=== PATIENT | male | born 1940 | race Caucasian/White ===

== ENCOUNTER → 2016-06-20 | Outpatient (CLI) | payer MEDICARE ==
--- NOTE | 2016-06-20 15:36 | XR ---
EXAMINATION TYPE: XR lumbosacral spine min 4V DATE OF EXAM: 06/20/2016 3:24 PM COMPARISON: NONE HISTORY: 75-year-old male right-sided low back pain TECHNIQUE: 5 views FINDINGS: There are 5 lumbar-type vertebral bodies. No pars interarticularis defect identified. Advanced hypertrophic facet arthropathy throughout the lumbar spine especially the mid to lower lumba r spine. There is severe disc/endplate degenerative change at L5-S1 and L4-L5 and more moderate at ad ditional levels of the lumbar spine. Bridging anterior endplate spondylosis at T12-L1. 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 Vertebral body heights are preserved and alignment is maintained. Leftward truncal shift is noted. T here is a smooth calcification in the right mid abdomen measuring 1.6 cm and the second just above me asuring 6 mm. On the left side of the abdomen, there is a calcification measuring 4 mm. IMPRESSION: 1. Severe hypertrophic facet arthropathy within the lumbar spine and additional severe degenerative d isc disease at L4 through S1 levels. No vertebral compression collapse or malalignment. 2. 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 3. Leftward truncal shift could be positional or secondary to muscle spasm. 4. Possible bilateral nephrolithiasis measuring up to 1.6 cm on the right.
== END | disposition home or self-care (01) ==
LOC: RADXRMAIN 15:10
PROVIDERS: ATTEND Internal Medicine
DX: M51.37 Other intervertebral disc degeneration, lumbosacral region (principal); M46.86 Other specified inflammatory spondylopathies, lumbar region
CPT/HCPCS: 72110

== ENCOUNTER → 2016-07-12 | Outpatient (CLI) | payer MEDICARE ==
[2016-07-12 12:05] LABS: CH 30.9; CHCM 33.9; HCT 46.7 % (39.0-53.0); HDW 2.77; HGB 15.6 gm/dL (13.0-17.5); MCH 30.7 pg (25.0-35.0); MCHC 33.5 g/dL (31.0-37.0); MCV 91.7 fL (80.0-100.0); Mean Platelet Volume 7.9; RBC 5.09 m/uL (4.30-5.90); RDW 13.1 % (11.5-15.5); WBC 7.7 k/uL (3.8-10.6)
[2016-07-12 12:24] LABS: ALT 34 U/L (21-72); AST 23 U/L (17-59); Alkaline Phosphatase 85 U/L (38-126); Anion Gap 11 mmol/L; Blood Urea Nitrogen 19 mg/dL (9-20); Calcium 9.7 mg/dL (8.4-10.2); Carbon Dioxide 28 mmol/L (22-30); Chloride 106 mmol/L (98-107); Cholesterol 182 mg/dL (<200); Glucose 172 mg/dL (74-99); HDL Cholesterol 49 mg/dL (40-60); Non-African American GFR(MDRD) >60 (>60 ml/min/1.73 sqM); Potassium 4.6 mmol/L (3.5-5.1); Sodium 145 mmol/L (137-145); Total Bilirubin 1.1 mg/dL (0.2-1.3); Total Protein 7.3 g/dL (6.3-8.2); Triglycerides 97 mg/dL (<150)
[2016-07-12 13:40] LABS: Hemoglobin A1C 5.8 % (4.2-6.1)
== END | disposition home or self-care (01) ==
LOC: LABWHC1 11:37
PROVIDERS: ATTEND Internal Medicine
DX: I11.9 Hypertensive heart disease without heart failure (principal); E11.9 Type 2 diabetes mellitus without complications; E78.2 Mixed hyperlipidemia
CPT/HCPCS: 36415; 80053; 80061; 83036; 85027

== ENCOUNTER → 2016-07-22 | Outpatient (CLI) | payer MEDICARE ==
--- NOTE | 2016-07-22 09:03 | MR ---
EXAMINATION TYPE: MR lumbar spine wo con DATE OF EXAM: 07/22/2016 8:36 AM COMPARISON: Lumbar spine x-ray June 20, 2016. CT abdomen and pelvis October 27, 2012. HISTORY: Low back pain per order. Low back pain causing pain into left buttocks thigh and calf for 2 months per patient. TECHNIQUE: Multiplanar, multisequence imaging of the lumbar spine is performed without IV contrast. FINDINGS: Sagittal images of the lumbar spine show vertebral body heights and alignment to appear sat isfactory. There is multilevel disc desiccation with multilevel disc space narrowing that is fairly m oderate to advanced in mid to lower lumbar levels. Vacuum disc phenomenon is redemonstrated at L4-L5 and L5-S1 levels. No large posterior disc herniations are present on sagittal images. There is mild t o moderate multilevel anterior spurring. The conus medullaris is normal in position and signal ending at inferior L1 level. The bone marrow signal intensity shows some heterogeneous areas of increased T1 and T2 signal consistent with Modic type II degenerative change most pronounced posteriorly L4-L5 disc space level. Axial images show the T12-L1 level to appear within normal limits. Axial images at the L1-L2 level show mild lobulated posterior disc protrusion mildly effacing anterio r thecal sac and mild facet degenerative changes with ligamentum flavum hypertrophy. Bilateral neural foramina are patent. Axial images at L2-L3 level show mild to moderate broad disc bulge mildly effacing anterior thecal sa c and mild facet degenerative changes bilaterally. Bilateral neural foramina remain patent. Axial images at L3-L4 level show mild to moderate facet degenerative changes and ligament flavum hype rtrophy effacing posterior lateral thecal sac. There is mild broad disc bulge seen. There is mild to moderate left and mild right-sided neural foraminal narrowing at this level identified. Axial images at the L4-L5 level show moderate facet degenerative changes bilaterally. There is mild t o moderate broad disc bulge seen. There is moderate bilateral anterior inferior neural foraminal narr owing at this level identified. Axial images at L5-S1 level show moderate facet degenerative changes bilaterally. There is mild to mo derate broad disc bulge seen. There is mild bilateral anterior inferior neural foraminal narrowing no artemio. There is persistent round T2 hypointense 1 cm lesion corresponding to UPJ calculus on axial image 17 on the right. IMPRESSION: Multilevel moderate to advanced degenerative changes most prominent in the mid to lower l umbar spine as detailed above.
== END | disposition home or self-care (01) ==
LOC: RADMRIMAIN 07:43
PROVIDERS: ATTEND Internal Medicine
DX: M47.26 Other spondylosis with radiculopathy, lumbar region (principal); M47.27 Other spondylosis with radiculopathy, lumbosacral region
CPT/HCPCS: 72148

== ENCOUNTER → 2016-11-14 | Outpatient (CLI) | payer MEDICARE ==
[2016-11-14 13:07] LABS: Anion Gap 12 mmol/L; Blood Urea Nitrogen 18 mg/dL (9-20); Calcium 10.1 mg/dL (8.4-10.2); Carbon Dioxide 26 mmol/L (22-30); Chloride 105 mmol/L (98-107); Cholesterol 186 mg/dL (<200); Glucose 124 mg/dL (74-99); HDL Cholesterol 52 mg/dL (40-60); Non-African American GFR(MDRD) >60 (>60 ml/min/1.73 sqM); Potassium 4.5 mmol/L (3.5-5.1); Sodium 143 mmol/L (137-145); Triglycerides 115 mg/dL (<150)
[2016-11-14 14:08] LABS: Hemoglobin A1C 6.1 % (4.2-6.1)
== END | disposition home or self-care (01) ==
LOC: LABWHC1 12:26
PROVIDERS: ATTEND Internal Medicine
DX: Z00.01 Encounter for general adult medical examination with abnormal findings (principal); E11.9 Type 2 diabetes mellitus without complications; E78.2 Mixed hyperlipidemia; I11.9 Hypertensive heart disease without heart failure
CPT/HCPCS: 36415; 80048; 80061; 82043; 83036

== ENCOUNTER 2017-02-21 17:50 | Emergency (ER) | payer MEDICARE ==
[2017-02-21 18:19] VITALS: RESP 18
--- NOTE | 2017-02-21 19:07 | ED ---
Extremity Problem HPI - General Chief complaint: Extremity Problem,Nontraumatic Stated complaint: L leg DVT. Brought from US Time Seen by Provider: 02/21/17 18:03 Source: patient Mode of arrival: ambulatory Limitations: no limitations - History of Present Illness Initial comments: This 76-year-old white male presents with a complaint of some left leg swelling. He states that this is been present for the last 5-6 days. 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 He is not on any blood thinners currently. He states that he had a problem in the past with an elevated INR and was severely ill and needed reversal. He denies any chest pain or shortness of breath. He apparently was following up with his physiatry wrist, Dr. Ellison, today and he sent him for an outpatient lower extremity venous Doppler ultrasound. This came back showing evidence of a DVT and he was sent to the ER from ultrasound. The technical support specialist apparently did contact Dr. Ellison. The patient has no other complaints or modifying factors. - Related Data Home Medications Medication Instructions Recorded Confirmed Aspirin 81 mg PO DAILY 08/01/15 08/09/15 Glimepiride [Glimepiride] 1 tab PO DAILY 08/01/15 08/09/15 Simvastatin [Simvastatin] 1 tab PO DAILY 08/01/15 08/09/15 Tamsulosin [Flomax] 0.4 mg PO DAILY 08/01/15 08/09/15 amLODIPine [Norvasc] 1 tab PO DAILY 08/01/15 08/09/15 metFORMIN HCL [Glucophage Xr] 500 mg PO BID 08/01/15 08/09/15 Allergies Allergy/AdvReac Type Severity Reaction Status Date / Time cephalexin monohydrate AdvReac GI Bleeding Verified 02/21/17 18:42 [From Keflex] sulfamethoxazole AdvReac GI Bleeding Verified 02/21/17 18:42 [From Bactrim] trimethoprim [From Bactrim] AdvReac GI Bleeding Verified 02/21/17 18:42 Review of Systems ROS Statement: Those systems with pertinent positive or pertinent negative responses have been documented in the HPI. ROS Other: All systems not noted in ROS Statement are negative. Past Medical History Past Medical History: Hyperlipidemia, Hypertension, Osteoarthritis (OA) Additional Past Medical History / Comment(s): 5 blood clots in right leg History of Any Multi-Drug Resistant Organisms: None Reported Past Surgical History: Orthopedic Surgery Additional Past Surgical History / Comment(s): carpal tunnel surgery, left shoulder replaced, varicose vein surgeries Past Anesthesia/Blood Transfusion Reactions: No Reported Reaction Past Psychological History: No Psychological Hx Reported Smoking Status: Never smoker Past Alcohol Use History: None Reported Past Drug Use History: None Reported - Past Family History Father Family Medical History: Cancer, Congestive Heart Failure (CHF), Hypertension, Myocardial Infarction ([place]) Mother Family Medical History: Cancer, Hypertension General Exam - General Exam Comments Initial Comments: GENERAL: The patient is well nourished and well hydrated. VITAL SIGNS: Heart rate, blood pressure, respiratory rate reviewed as recorded in nurse's notes. EYES: Pupils are round and reactive. Extraocular movements are intact. No conjunctival / lid redness or swelling. ENT: No external evidence of injury, swelling, or ecchymosis. Airway is patent. Throat is clear. NECK: Nontender. No swelling or evidence of injury. No subcutaneous emphysema. Trachea is midline. No thyroid mass. HEART: Regular rate and rhythm. Good peripheral pulses. LUNGS/CHEST: Breath sounds clear and equal bilaterally. No rales, rhonchi, or wheezes. No ecchymosis, subcutaneous emphysema, or tenderness. ABDOMEN: Abdomen soft without tenderness. No palpable masses or organomegaly. No peritoneal signs. No abdominal wall swelling or ecchymosis. EXTREMITIES: No extremity tenderness. Normal muscle tone and function. No thoracolumbar tenderness. There is some mild swelling present to the left calf region. NEUROLOGIC: Sensation is grossly intact. Cranial nerve exam reveals face is symmetrical, tongue is midline, speech is clear. SKIN: No abrasions or ecchymosis is noted. No induration or masses noted. PSYCHIATRIC: Alert and oriented. Appropriate behavior and judgment. Limitations: no limitations Course Vital Signs 02/21/17 18:04 Temperature 98.3 F Pulse Rate 74 Respiratory 18 Rate Blood Pressure 192/89 O2 Sat by Pulse 97 Oximetry Medical Decision Making - Medical Decision Making The patient was seen and examined. 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 The case was discussed with the [facility] for [facility] who discussed with Dr. Ellison. 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 The patient does not have any signs of pulmonary embolism at this time. It is felt as though he is stable for discharge and was instructed to go directly to the pharmacy to pickle water pump operator the prescription and start taking the Xaralto. The pharmacy retail support specialist apparently did call up to [facility] and they relate that he will be responsible for approximately $300 for the prescription. The patient is unsure if he can afford this. He is offered admission to the hospital instead to receive Lovenox and then be transitioned to Coumadin once again. He states that he cannot stay in the hospital as he has to pickle water pump operator [place] the [place]. A long discussion was held regarding the need for being on a blood thinner and that he can progress into a pulmonary embolism and potentially be fatal. He absolutely refuses admission to the hospital and states that he will go to the pharmacy and talked to the pharmacist to try to arrange something. He is instructed that if he is unable to get the prescription filled and he should immediately return to the emergency department to be admitted to the hospital for further anticoagulation. He understands and leaves in no identifiable distress. Disposition Clinical Impression: Deep vein thrombosis of lower extremity Disposition: HOME SELF-CARE Condition: Good Instructions: Deep Venous Thrombosis (ED) Additional Instructions: Please go directly to the pharmacy and get your Xaralto prescription filled. If you are unable to get this prescription filled then please return to the emergency department for admission and blood thinning. Referrals: uLan Stewart MD [Primary Care Provider] - 1-2 days Time of Disposition: 19:09
[2017-02-21 19:20] VITALS: BP 175/80; PULSE 70; TEMP 98.5
== END 2017-02-21 19:18 | disposition home or self-care (01) ==
LOC: EC 17:50
DX: I82.532 Chronic embolism and thrombosis of left popliteal vein (principal); I82.432 Acute embolism and thrombosis of left popliteal vein; I82.542 Chronic embolism and thrombosis of left tibial vein; I82.442 Acute embolism and thrombosis of left tibial vein; E78.5 Hyperlipidemia, unspecified; I10 Essential (primary) hypertension; M19.90 Unspecified osteoarthritis, unspecified site; Z79.82 Long term (current) use of aspirin; Z79.84 Long term (current) use of oral hypoglycemic drugs; Z79.899 Other long term (current) drug therapy; Z88.1 Allergy status to other antibiotic agents; Z98.890 Other specified postprocedural states
CPT/HCPCS: 99283

== ENCOUNTER → 2017-02-21 | Outpatient (CLI) | payer MEDICARE ==
--- NOTE | 2017-02-21 17:59 | US ---
EXAMINATION TYPE: US venous doppler duplex LE LT DATE OF EXAM: 02/21/2017 5:45 PM COMPARISON: NONE CLINICAL HISTORY: I80.9 left Lower Ext Pain and Swelling. Edema left lower leg, discoloration left lo wer leg, ulcer left lower leg, history of DVT SIDE PERFORMED: Left TECHNIQUE: The lower extremity deep venous system is examined utilizing real time linear array sonog marco antonio with graded compression, doppler sonography and color-flow sonography. VESSELS IMAGED: External Iliac Vein (EIV) Common Femoral Vein Deep Femoral Vein Greater Saphenous Vein * Femoral Vein Popliteal Vein Small Saphenous Vein * Proximal Calf Veins (* superficial vessels) Left Leg: *Positive for DVT, Thready flow with incomplete compression left popliteal vein mid, dista l, and proximal calf vein. 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
== END ==
LOC: RADUSMAIN 16:53
PROVIDERS: ATTEND Physical Medicine & Rehabilitation
DX: I82.432 Acute embolism and thrombosis of left popliteal vein (principal); I82.442 Acute embolism and thrombosis of left tibial vein

== ENCOUNTER → 2017-03-03 | Outpatient (CLI) | payer MEDICARE ==
--- NOTE | 2017-03-03 14:48 | US ---
EXAMINATION TYPE: US venous doppler duplex LE LT DATE OF EXAM: 03/03/2017 1:25 PM COMPARISON: 02/21/2017 CLINICAL HISTORY: 76-year-old male Phleboliths and thrombophlebitis of unspecified site I80.9. Pt hav ing non-healing wounds left lower leg and leg discoloration, pt states previous DVT left leg, current ly not on blood thinners SIDE PERFORMED: Left TECHNIQUE: The lower extremity deep venous system is examined utilizing real time linear array sonog marco antonio with graded compression, doppler sonography and color-flow sonography. FINDINGS: VESSELS IMAGED: External Iliac Vein (EIV) Common Femoral Vein Deep Femoral Vein Greater Saphenous Vein * Femoral Vein Popliteal Vein Small Saphenous Vein * Proximal Calf Veins (* superficial vessels) Left Leg: Non-occluding thrombus left popliteal veins of indeterminant age, left PTV's unable to be visualized due to edema IMPRESSION: Chronic-appearing, nonocclusive thrombus in the popliteal vein. Unable to visualize the posterior tib ial veins secondary to the extent of soft tissue edema
--- NOTE | 2017-03-05 09:56 | P.ARTDOP ---
Arterial Doppler LOWER EXTREMITY ARTERIAL DOPPLER: DATE OF SERVICE: 03/03/2017 Reason for study: Left leg ulcers. Doppler waveforms: Multiphasic throughout on the left. Pulse volume recording: []. Pressure gradients: None. Ankle-brachial indices: Greater than 1. Toe pressures: [] on the right, 110 on the left Impression: Normal study on the left.
== END | disposition home or self-care (01) ==
LOC: RADUSWWP 12:41
PROVIDERS: ATTEND Physical Medicine & Rehabilitation
DX: I82.532 Chronic embolism and thrombosis of left popliteal vein (principal); I80.9 Phlebitis and thrombophlebitis of unspecified site
CPT/HCPCS: 93922

== ENCOUNTER 2017-11-26 16:27 | Emergency (ER) | payer MEDICARE ==
[2017-11-26 16:50] VITALS: RESP 18
[2017-11-26] MEDS ORDERED: SODIUM CHLORIDE 0.9% 1,000 ML IV STA ×3 (16:57→19:11)
--- NOTE | 2017-11-26 17:05 | ED ---
General Adult HPI - General Chief complaint: Dizziness Stated complaint: Dizzines/ Low BP/Diabetic Time Seen by Provider: 11/26/17 16:57 Source: patient, RN notes reviewed, old records reviewed Mode of arrival: wheelchair Limitations: no limitations - History of Present Illness Initial comments: This is a 77-year-old male to the ER for evaluation. Presents today for evaluation of dizziness. Patient has dizziness weakness low blood pressure. Patient states he felt well until he woke up this morning, felt well last night with no problems. Patient has history of normally high blood pressure, 2 similar doctor today for normal appointment until about symptoms, patient symptoms are worsening goes from sitting to standing. Patient's blood pressure was low on an outpatient basis, he denies fever no chest pain or shortness of breath. No other complaints, patient feels weak lightheaded and dizzy - Related Data Home Medications Medication Instructions Recorded Confirmed Glimepiride [Glimepiride] 4 mg PO BID 08/01/15 11/26/17 Simvastatin [Simvastatin] 40 mg PO DAILY 08/01/15 11/26/17 Enalapril [Vasotec] 10 mg PO BID 02/21/17 11/26/17 Gabapentin [Neurontin] 300 mg PO TID 02/21/17 11/26/17 amLODIPine [Norvasc] 10 mg PO DAILY 02/21/17 11/26/17 cloNIDine HCL [Catapres] 0.1 mg PO BID 02/21/17 11/26/17 metFORMIN HCL [Glucophage] 500 mg PO BID 02/21/17 11/26/17 Allergies Allergy/AdvReac Type Severity Reaction Status Date / Time cephalexin monohydrate AdvReac GI Bleeding Verified 11/26/17 17:13 [From Keflex] sulfamethoxazole AdvReac GI Bleeding Verified 11/26/17 17:13 [From Bactrim] trimethoprim [From Bactrim] AdvReac GI Bleeding Verified 11/26/17 17:13 Review of Systems ROS Statement: Those systems with pertinent positive or pertinent negative responses have been documented in the HPI. ROS Other: All systems not noted in ROS Statement are negative. Past Medical History Past Medical History: Diabetes Mellitus, Deep Vein Thrombosis (DVT), Hyperlipidemia, Hypertension, Osteoarthritis (OA) Additional Past Medical History / Comment(s): 3 ulcers left lower leg Hx 5 blood clots in right leg , 3 blood clots left leg, ulcers to legs History of Any Multi-Drug Resistant Organisms: None Reported Past Surgical History: Hernia Repair, Orthopedic Surgery Additional Past Surgical History / Comment(s): carpal tunnel surgery, left shoulder replaced, varicose vein surgeries,left leg procedure to remove blood clots Past Anesthesia/Blood Transfusion Reactions: No Reported Reaction Past Psychological History: No Psychological Hx Reported Smoking Status: Never smoker Past Alcohol Use History: None Reported Past Drug Use History: None Reported - Past Family History Father Family Medical History: Cancer, Congestive Heart Failure (CHF), Hypertension, Myocardial Infarction ([place]) Mother Family Medical History: Cancer, Hypertension General Exam Limitations: no limitations General appearance: alert, in no apparent distress Head exam: Present: atraumatic, normocephalic, normal inspection Eye exam: Present: normal appearance, PERRL, EOMI. Absent: scleral icterus, conjunctival injection, periorbital swelling ENT exam: Present: normal exam, mucous membranes moist Neck exam: Present: normal inspection. Absent: tenderness, meningismus, lymphadenopathy Respiratory exam: Present: normal lung sounds bilaterally. Absent: respiratory distress, wheezes, rales, rhonchi, stridor Cardiovascular Exam: Present: regular rate, normal rhythm, normal heart sounds. Absent: systolic murmur, diastolic murmur, rubs, gallop, clicks GI/Abdominal exam: Present: soft, normal bowel sounds. Absent: distended, tenderness, guarding, rebound, rigid Extremities exam: Present: normal inspection, full ROM, normal capillary refill. Absent: tenderness, pedal edema, joint swelling, calf tenderness Back exam: Present: normal inspection Neurological exam: Present: alert, oriented X3, CN II-XII intact Psychiatric exam: Present: normal affect, normal mood Skin exam: Present: warm, dry, intact, normal color. Absent: rash Course Vital Signs 11/26/17 11/26/17 16:47 18:16 Temperature 98.3 F Pulse Rate 63 54 L Respiratory 18 18 Rate Blood Pressure 102/71 130/66 O2 Sat by Pulse 98 100 Oximetry - Reevaluation(s) Reevaluation #1: 11/26/17 19:12 Patient's blood pressure is improved with IV fluids, patient's symptoms are improved EKG Findings - EKG Comments: EKG Findings:: EKG shows sinus bradycardia rate of 58, ME 174, QRS 100, QTC 429 Medical Decision Making - Medical Decision Making 77 male the ER with symptoms of hypotension, orthostatic hypotension symptoms worse with getting up and sitting up and moving. Patient denies any significant stressors physical activity no chest pain shortness breath or abdominal pain. Labwork is normal CT brain x-ray are negative. Patient can be discharged home as his symptoms are resolved with IV fluid - Lab Data Result diagrams: 11/26/17 17:03 11/26/17 17:03 Lab Results 11/26/17 11/26/17 11/26/17 Range/Units 17:03 17:03 17:03 WBC 7.3 (3.8-10.6) k/uL RBC 5.36 (4.30-5.90) m/uL Hgb 15.7 (13.0-17.5) gm/dL Hct 46.9 (39.0-53.0) % MCV 87.5 (80.0-100.0) fL MCH 29.3 (25.0-35.0) pg MCHC 33.5 (31.0-37.0) g/dL RDW 14.7 (11.5-15.5) % Plt Count 221 (150-450) k/uL Neutrophils % 55 % Lymphocytes % 29 % Monocytes % 9 % Eosinophils % 5 % Basophils % 0 % Neutrophils # 4.0 (1.3-7.7) k/uL Lymphocytes # 2.1 (1.0-4.8) k/uL Monocytes # 0.7 (0-1.0) k/uL Eosinophils # 0.3 (0-0.7) k/uL Basophils # 0.0 (0-0.2) k/uL PT (9.0-12.0) sec INR (<1.2) APTT (22.0-30.0) sec Sodium 143 (137-145) mmol/L Potassium 4.7 (3.5-5.1) mmol/L Chloride 107 (98-107) mmol/L Carbon Dioxide 23 (22-30) mmol/L Anion Gap 13 mmol/L BUN 28 H (9-20) mg/dL Creatinine 1.40 H (0.66-1.25) mg/dL Est GFR (CKD-EPI)AfAm 57 (>60 ml/min/1.73 sqM) Est GFR (CKD-EPI)NonAf 49 (>60 ml/min/1.73 sqM) Glucose 156 H (74-99) mg/dL Calcium 10.1 (8.4-10.2) mg/dL Phosphorus 4.3 (2.5-4.5) mg/dL Magnesium 2.2 (1.6-2.3) mg/dL Total Bilirubin 0.8 (0.2-1.3) mg/dL AST 20 (17-59) U/L ALT 26 (21-72) U/L Alkaline Phosphatase 80 (38-126) U/L Total Creatine Kinase 46 L (55-170) U/L CK-MB (CK-2) 0.4 (0.0-2.4) ng/mL CK-MB (CK-2) Rel Index 0.9 Troponin I <0.012 (0.000-0.034) ng/mL Total Protein 7.1 (6.3-8.2) g/dL Albumin 4.3 (3.5-5.0) g/dL Urine Color Urine Appearance (Clear) Urine pH (5.0-8.0) Ur Specific [place] (1.001-1.035) Urine Protein (Negative) Urine Glucose (UA) (Negative) Urine Ketones (Negative) Urine Blood (Negative) Urine Nitrite (Negative) Urine Bilirubin (Negative) Urine Urobilinogen (<2.0) mg/dL Ur Leukocyte Esterase (Negative) Urine RBC (0-5) /hpf Urine WBC (0-5) /hpf Ur Squamous Epith Cells (0-4) /hpf Amorphous Sediment (None) /hpf Hyaline Casts (0-2) /lpf Urine Mucus (None) /hpf 11/26/17 11/26/17 Range/Units 17:03 18:15 WBC (3.8-10.6) k/uL RBC (4.30-5.90) m/uL Hgb (13.0-17.5) gm/dL Hct (39.0-53.0) % MCV (80.0-100.0) fL MCH (25.0-35.0) pg MCHC (31.0-37.0) g/dL RDW (11.5-15.5) % Plt Count (150-450) k/uL Neutrophils % % Lymphocytes % % Monocytes % % Eosinophils % % Basophils % % Neutrophils # (1.3-7.7) k/uL Lymphocytes # (1.0-4.8) k/uL Monocytes # (0-1.0) k/uL Eosinophils # (0-0.7) k/uL Basophils # (0-0.2) k/uL PT 10.7 (9.0-12.0) sec INR 1.1 (<1.2) APTT 22.1 (22.0-30.0) sec Sodium (137-145) mmol/L Potassium (3.5-5.1) mmol/L Chloride (98-107) mmol/L Carbon Dioxide (22-30) mmol/L Anion Gap mmol/L BUN (9-20) mg/dL Creatinine (0.66-1.25) mg/dL Est GFR (CKD-EPI)AfAm (>60 ml/min/1.73 sqM) Est GFR (CKD-EPI)NonAf (>60 ml/min/1.73 sqM) Glucose (74-99) mg/dL Calcium (8.4-10.2) mg/dL Phosphorus (2.5-4.5) mg/dL Magnesium (1.6-2.3) mg/dL Total Bilirubin (0.2-1.3) mg/dL AST (17-59) U/L ALT (21-72) U/L Alkaline Phosphatase (38-126) U/L Total Creatine Kinase (55-170) U/L CK-MB (CK-2) (0.0-2.4) ng/mL CK-MB (CK-2) Rel Index Troponin I (0.000-0.034) ng/mL Total Protein (6.3-8.2) g/dL Albumin (3.5-5.0) g/dL Urine Color Yellow Urine Appearance Clear (Clear) Urine pH 5.5 (5.0-8.0) Ur Specific [place] 1.022 (1.001-1.035) Urine Protein 1+ H (Negative) Urine Glucose (UA) 3+ H (Negative) Urine Ketones Trace H (Negative) Urine Blood Trace H (Negative) Urine Nitrite Negative (Negative) Urine Bilirubin Negative (Negative) Urine Urobilinogen 2.0 (<2.0) mg/dL Ur Leukocyte Esterase Trace H (Negative) Urine RBC 20 H (0-5) /hpf Urine WBC 4 (0-5) /hpf Ur Squamous Epith Cells <1 (0-4) /hpf Amorphous Sediment Occasional H (None) /hpf Hyaline Casts 1 (0-2) /lpf Urine Mucus Few H (None) /hpf - Radiology Data Radiology results: report reviewed (CT brain negative chest x-ray negative), image reviewed Disposition Clinical Impression: Orthostatic hypotension, Dehydration Disposition: HOME SELF-CARE Condition: Good Instructions: Hypotension (ED), Near Syncope (ED) Is patient prescribed a controlled substance at d/c from ED?: No Referrals: Luan Stewart MD [Primary Care Provider] - 1-2 days
[2017-11-26 17:13] LABS: Basophils % (A) 0 %; Eosinophils # (A) 0.3 k/uL (0-0.7); Eosinophils % (A) 5 %; HCT 46.9 % (39.0-53.0); HGB 15.7 gm/dL (13.0-17.5); Lymphocytes # (A) 2.1 k/uL (1.0-4.8); Lymphocytes % (A) 29 %; MCH 29.3 pg (25.0-35.0); MCHC 33.5 g/dL (31.0-37.0); MCV 87.5 fL (80.0-100.0); Monocytes # (A) 0.7 k/uL (0-1.0); Monocytes % (A) 9 %; Neutrophils % (A) 55 %; Platelet Count 221 k/uL (150-450); RBC 5.36 m/uL (4.30-5.90); RDW 14.7 % (11.5-15.5); WBC 7.3 k/uL (3.8-10.6)
[2017-11-26 17:23] LABS: Albumin 4.3 g/dL (3.5-5.0); Calcium 10.1 mg/dL (8.4-10.2); INR 1.1 (<1.2); Magnesium 2.2 mg/dL (1.6-2.3); Partial Thromboplastin Time 22.1 sec (22.0-30.0); Phosphorus 4.3 mg/dL (2.5-4.5); Potassium 4.7 mmol/L (3.5-5.1); Prothrombin Time 10.7 sec (9.0-12.0); Total Bilirubin 0.8 mg/dL (0.2-1.3); Total Protein 7.1 g/dL (6.3-8.2)
[2017-11-26 17:31] LABS: Creatine Kinase 46 U/L (55-170)
[2017-11-26 17:43] LABS: Creatine Kinase MB 0.4 ng/mL (0.0-2.4); Troponin I <0.012 ng/mL (0.000-0.034)
--- NOTE | 2017-11-26 18:16 | CT ---
EXAMINATION TYPE: CT brain wo con DATE OF EXAM: 11/26/2017 COMPARISON: NONE HISTORY: Weakness, dizziness, and hypotension. CT DLP: 1121 mGycm Automated exposure control for dose reduction was used. FINDINGS: There is cerebral cortical atrophy. There is no mass effect nor midline shift. There is no sign of in tracranial hemorrhage. The calvarium is intact. IMPRESSION: CEREBRAL ATROPHY. NO ACUTE INTRACRANIAL ABNORMALITY.
[2017-11-26 18:25] LABS: Amorphous Sediment,Urine Occasional /hpf; Appearance,Urine Clear (Clear); Bilirubin,Urine Negative (Negative); Blood,Urine Trace (Negative); Color,Urine Yellow; Glucose,Urine (UA) 3+ (Negative); Hyaline Casts,Urine 1 /lpf (0-2); Ketones,Urine Trace (Negative); Leukocyte Esterase,Urine Trace (Negative); Mucus,Urine Few /hpf; Nitrite,Urine Negative (Negative); PH, Urine 5.5 (5.0-8.0); Protein,Urine 1+ (Negative); RBC,Urine 20 /hpf (0-5); Specific Gravity,Urine 1.022 (1.001-1.035); Squamous Epithelial Cell,Urine <1 /hpf (0-4); WBC,Urine 4 /hpf (0-5)
--- NOTE | 2017-11-26 19:15 | XR ---
EXAMINATION TYPE: XR chest 2V DATE OF EXAM: 11/26/2017 COMPARISON: 07/21/2015 HISTORY: Dizziness TECHNIQUE: Frontal and lateral views of the chest are obtained. FINDINGS: Heart and mediastinum are normal. Lungs are clear. Diaphragm is normal. There is left shou lder prosthesis. There is no sign of pleural effusion. IMPRESSION: No cardiopulmonary disease. No change.
[2017-11-26 20:22] VITALS: BP 162/82; PULSE 89; TEMP 97.2
== END 2017-11-26 20:30 | disposition home or self-care (01) ==
LOC: EC 16:27
DX: E86.0 Dehydration (principal); I95.1 Orthostatic hypotension; R00.1 Bradycardia, unspecified; E11.9 Type 2 diabetes mellitus without complications; E78.5 Hyperlipidemia, unspecified; I10 Essential (primary) hypertension; Z79.84 Long term (current) use of oral hypoglycemic drugs; Z79.899 Other long term (current) drug therapy; Z88.1 Allergy status to other antibiotic agents; Z88.2 Allergy status to sulfonamides
CPT/HCPCS: 36415; 70450; 71046; 80053; 81001; 82550; 82553; 83735; 84100; 84484; 85025; 85610; 85730; 87086; 93005; 96360; 96361; 99285

== ENCOUNTER → 2018-12-03 | Outpatient (CLI) | payer MEDICARE ==
[2018-12-03 13:59] LABS: HCT 45.8 % (39.0-53.0); HGB 15.1 gm/dL (13.0-17.5); MCH 28.4 pg (25.0-35.0); MCHC 32.9 g/dL (31.0-37.0); MCV 86.3 fL (80.0-100.0); Mean Platelet Volume 7.1; Platelet Count 268 k/uL (150-450); RBC 5.31 m/uL (4.30-5.90); RDW 14.1 % (11.5-15.5); WBC 6.5 k/uL (3.8-10.6)
[2018-12-03 18:37] LABS: African American GFR (CKD) 51.7 (60.0-200.0); Albumin 4.1 g/dL (3.80-4.90); Albumin/Globulin Ratio 1.64 (1.60-3.17); Anion Gap 9.7 mmol/L (4.00-12.00); BUN/Creat Ratio 16.67 Ratio (12.00-20.00); Calcium 9.7 mg/dL (8.7-10.3); Carbon Dioxide 27.3 mmol/L (21.6-31.8); Globulin 2.5 g/dL (1.6-3.3); Potassium 4.3 mmol/L (3.5-5.5); Total Bilirubin 0.9 mg/dL (0.2-1.2); Total Protein 6.6 g/dL (6.2-8.2)
[2018-12-03 22:19] LABS: Hemoglobin A1C 7.5 % (4.0-6.0)
== END | disposition home or self-care (01) ==
LOC: LABWHC1 13:24
PROVIDERS: ATTEND Internal Medicine
DX: E78.2 Mixed hyperlipidemia (principal); I11.9 Hypertensive heart disease without heart failure; N40.0 Benign prostatic hyperplasia without lower urinary tract symptoms; K21.0 Gastro-esophageal reflux disease with esophagitis; E11.9 Type 2 diabetes mellitus without complications
CPT/HCPCS: 36415; 80053; 80061; 82272; 83036; 84153; 84439; 84443; 85027

== ENCOUNTER → 2023-04-09 | Outpatient (CLI) | payer MEDICARE ==
--- NOTE | 2023-04-09 22:31 | US ---
EXAMINATION TYPE: US arterial LE single level DATE OF EXAM: 04/09/2023 2:05 PM CLINICAL INDICATION: Male, 82 years old with history of L97.322 NON-PRESSURE CHRONIC ULCER OF LEFT AN KLE W; History of: Smoker: N Hypertension: Y Diabetic: Y Hyperlipidemia: Y TIA/CVA: N Previous Vascular Surgery: Y CAD: N [place]: N Vascular Ulcers: Y RIGHT ANKLE Claudication: N Gangrene: N Doppler Waveforms: Right: Monophasic Left: Monophasic Right Brachial Pressure: 156 Left Brachial Pressure: 161 Ankle-Brachial Indices: Right: 1.12 Left: 1.27 Toe Brachial Indices: Right: 1.01 Left: 0.93 IMPRESSION: 1. No significant ratio abnormality suggest focal stenosis. 2. There is some monophasic waveform within the lower extremities which could indicate some lower ext remity arterial narrowing. Consider more focal stenosis and CTA aortic runoff could be performed. Rat ios however remain within normal limits
--- NOTE | 2023-04-09 22:32 | US ---
EXAMINATION TYPE: US venous doppler duplex LE DATE OF EXAM: 04/09/2023 2:05 PM COMPARISON: NONE CLINICAL INDICATION: Male, 82 years old with history of L97.322 NON-PRESSURE CHRONIC ULCER OF LEFT AN KLE W; SIDE PERFORMED: TECHNIQUE: The lower extremity deep venous system is examined utilizing real time linear array sonog marco antonio with graded compression, doppler sonography and color-flow sonography. VESSELS IMAGED: Common Femoral Vein Deep Femoral Vein Greater Saphenous Vein * Femoral Vein Popliteal Vein Small Saphenous Vein * Proximal Calf Veins (* superficial vessels) Right Leg: Chronic DVT noted within the CFV, profunda femoris, and deep femoral vein. Reflux seen within the: GSV = 3.3 sec CFV = 3.6 sec Deep Femoral = 2.7 sec Mid Femoral vein = 4.3 sec Proximal Popliteal Vein = 2.6 sec Distal Popliteal Vein = 2.4 sec SSV = 2.4 Left Leg: Chronic DVT seen within the profunda femoris. Reflux seen within the: Proximal Femoral Vein = 3.2 sec IMPRESSION: 1. 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 2. Reflux in the proximal left femoral vein. 3. Right Reflux evident within the greater saphenous common, femoral, deep femoral, proximal poplitea l and distal popliteal veins. Saphenous vein reflux is evident.
== END | disposition home or self-care (01) ==
LOC: RADUSWWP 12:46
PROVIDERS: ATTEND Nurse Practitioner Family
DX: I82.502 Chronic embolism and thrombosis of unspecified deep veins of left lower extremity (principal); L97.322 Non-pressure chronic ulcer of left ankle with fat layer exposed; I87.2 Venous insufficiency (chronic) (peripheral)
CPT/HCPCS: 93922; 93970

== ENCOUNTER → 2023-12-25 | Outpatient (CLI) | payer MEDICARE ==
--- NOTE | 2023-12-29 09:05 | PE ---
EXAMINATION TYPE: PET CT fusion whole body DATE OF EXAM: 12/25/2023 COMPARISON: No recent pertinent CT. MRI brain 12/26/2023 Prior PET/CT: No prior at this location HISTORY: [place] cell TECHNIQUE: Following the intravenous administration of 11.5 to mCi of F-18 FDG, whole body images ar e performed from the skull vertex to the lower extremities. Images are reviewed on the computer in th e coronal, axial, and sagittal planes. Reconstructed rotating images are created on independent work station and reviewed on the computer. A localization and attenuation correction CT is performed in conjunction with the PET scan. DLP: 1064.63 mGycm SCAN: Subsequent Scan Blood glucose: 106 mg/dL Average Mediastinum SUV: 2.24 Average Liver SUV: 2.76 FINDINGS: HEAD and NECK: No suspicious uptake THORAX: No suspicious uptake ABDOMEN: No suspicious uptake PELVIS: There is a punctate area of increased uptake in the right inguinal region, image 242, SUV 5.4 3. There is a large hypodense mass right inguinal region without abnormal uptake. Lower extremities: No suspicious uptake. OSSEOUS STRUCTURES: No suspicious uptake. LOCALIZATION CT: The prostate appears somewhat prominent. COMPARISON: No pertinent comparison. IMPRESSION: 1. Solitary punctate hyperintensity within right inguinal region with mild elevated SUV. Small prosta tic lymph node should be considered right inguinal region.. 2. Hypodense mass right medial thigh, suspicious uptake not identified.
== END | disposition home or self-care (01) ==
LOC: RADPETMAIN 14:18
PROVIDERS: ATTEND Internal Medicine Hematology & Oncology
DX: C4A Merkel cell carcinoma (principal)
CPT/HCPCS: 78816; A9552

== ENCOUNTER → 2023-12-26 | Outpatient (CLI) | payer MEDICARE ==
--- NOTE | 2023-12-26 10:04 | MR ---
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 TECHNIQUE: Multiplanar, multisequence images of the brain and brainstem were acquired before and aft er administration of 9 mL IV Gadavist. Diffusion weighted imaging is performed. FINDINGS: No evidence for acute infarction, hemorrhage, mass, mass effect, midline shift, herniation, effacemen t of basal cisterns, or extra-axial fluid collection. There is moderate generalized supratentorial volume loss. Secondary mild prominence to the ventricula r system. Major intracranial flow voids are intact. T2/FLAIR weighted sequences show no significant white matter signal abnormality. Only a couple puncta te foci may be present on either side suggesting no significant burden of chronic small vessel ischem ic disease. Midline structures demonstrate normal morphology. Incidental megacisterna magna. Otherwise, the crani ocervical junction is normal. Post contrast images demonstrate no evidence of pathologic enhancement. Dural venous sinuses are pat ent. Moderate mucosal thickening ethmoid air cells. Mild within the maxillary sinuses. Orbits and globes a re intact. IMPRESSION: 1. Moderate generalized cerebral atrophy. 2. No acute intracranial abnormality or enhancing intracranial lesion seen. 3. Moderate chronic ethmoid sinus disease.
== END | disposition home or self-care (01) ==
LOC: RADMRIMAIN 07:27
PROVIDERS: ATTEND Internal Medicine Hematology & Oncology
DX: C4A Merkel cell carcinoma (principal); J32.2 Chronic ethmoidal sinusitis
CPT/HCPCS: 70553; A9585

== ENCOUNTER 2024-01-17 09:17 | Emergency (ER) | payer MEDICARE ==
--- NOTE | 2024-01-17 10:01 | ED ---
General Adult HPI - General Chief complaint: Recheck/Abnormal Lab/Rx Stated complaint: post op comp Time Seen by Provider: 01/17/24 09:20 Source: patient, RN notes reviewed, old records reviewed Mode of arrival: ambulatory Limitations: no limitations - History of Present Illness Initial comments: This is an 83-year-old male who presents to the emergency department stating that he had recent surgery on his leg at the [facility]. Patient states that he had a drain placed and it has been draining normally. Patient states as of last night he did not notice much drainage that seem to be leaking around the tube and the area in the groin is swelling. Patient states that in the past the tube connecting to the drain bag has become clogged and he thinks it needs to be cleaned out again. Patient denies any fever or chills. Patient has any increased pain. Patient states the only indication that it is not draining well is the leaking around the tube and the fact that the area in the groin is now more swollen - Related Data Home Medications Medication Instructions Recorded Confirmed Glimepiride 4 mg PO BID 08/01/15 01/07/24 Simvastatin 40 mg PO DAILY 08/01/15 01/07/24 Gabapentin [Neurontin] 300 mg PO TID 02/21/17 01/07/24 amLODIPine [Norvasc] 10 mg PO DAILY 02/21/17 01/07/24 cloNIDine HCL [Catapres] 0.1 mg PO BID 02/21/17 01/07/24 Aspirin [Adult Low Dose Aspirin EC] 81 mg PO DAILY 01/05/24 01/07/24 Finasteride [Proscar] 5 mg PO DAILY 01/05/24 01/07/24 Tamsulosin [Flomax] 0.4 mg PO BID 01/05/24 01/07/24 Allergies Allergy/AdvReac Type Severity Reaction Status Date / Time cephalexin monohydrate AdvReac GI Bleeding Verified 01/17/24 09:23 [From Keflex] sulfamethoxazole AdvReac GI Bleeding Verified 01/17/24 09:23 [From Bactrim] trimethoprim [From Bactrim] AdvReac GI Bleeding Verified 01/17/24 09:23 Review of Systems ROS Statement: Those systems with pertinent positive or pertinent negative responses have been documented in the HPI. ROS Other: All systems not noted in ROS Statement are negative. 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, lymph nodes removed from right groin 11/2023 History of Any Multi-Drug Resistant Organisms: None Reported Past Surgical History: Hernia Repair, Orthopedic Surgery Additional Past Surgical History / Comment(s): carpal tunnel surgery, left shoulder replaced, varicose vein surgeries,left leg procedure to remove blood clots, hardware in right shoulder Past Anesthesia/Blood Transfusion Reactions: No Reported Reaction Past Psychological History: No Psychological Hx Reported Smoking Status: Never smoker Past Alcohol Use History: Occasional Past Drug Use History: None Reported - Past Family History Father Family Medical History: Cancer, Congestive Heart Failure (CHF), Hypertension, Myocardial Infarction (AR) Mother Family Medical History: Cancer, Hypertension General Exam - General Exam Comments Initial Comments: GENERAL Patient is well-developed and well-nourished. Patient is in mild distress. EYES Patient's pupils are equal and round. Extraocular motion is intact SKIN Unremarkable NEURO The patient is alert and oriented A&Ox3 PYSCH Patient has normal interpersonal interactions. MUSCULOSKELETAL Left groin area is swollen and there is a drain in the groin and around the groin there is some clear fluid draining. There is also some fluid in the bag Limitations: no limitations Course Vital Signs 01/17/24 09:18 Temperature 98.2 F Pulse Rate 95 Respiratory 20 Rate Blood Pressure 151/85 O2 Sat by Pulse 99 Oximetry Medical Decision Making - Medical Decision Making Was pt. sent in by a medical professional or institution (, PA, AQUATIC PERFORMER, urgent care, hospital, or correction...) When possible be specific @ -No Did you speak to anyone other than the patient for history (EMS, parent, family, police, friend...)? What history was obtained from this source @ -No Did you review nursing and triage notes (agree or disagree)? Why? @ -I reviewed and agree with nursing and triage notes Were old charts reviewed (outside hosp., previous admission, EMS record, old EKG, old radiological studies, urgent care reports/EKG's, correction records)? Report findings @ -No old charts were reviewed Differential Diagnosis? @ -Chest pain, altered mental status, abdominal pain women, abdominal pain men, vaginal bleeding, weakness, fever, dyspnea, syncope, headache, dizziness, GI bleed, back pain, seizure, CVA, palpatations, mental health, musculoskeletal EKG interpreted by me (3pts min.). @ -As above X-rays interpreted by me (1pt min.). @ -None done CT interpreted by me (1pt min.). @ -None done U/S interpreted by me (1pt. min.). @ -None done What testing was considered but not performed or refused? (CT, X-rays, U/S, labs)? Why? @ -None What meds were considered but not given or refused? Why? @ -None Did you discuss the management of the patient with other professionals (professionals i.e. , PA, AQUATIC PERFORMER, lab, RT, psych nurse, outreach and education social worker, occupational safety specialist, teacher, activities officer, leather case finisher)? Give summary @ -No Was smoking cessation discussed for >3mins.? @ -No Was critical care preformed (if so, how long)? @ -No Were there social determinants of health that impacted care today? How? (Homelessness, low income, unemployed, alcoholism, drug addiction, transportation, low edu. Level, literacy, decrease access to med. care, fpc, rehab)? @ -No Was there de-escalation of care discussed even if they declined (Discuss DNR or withdrawal of care, Hospice)? DNR status @ -No What co-morbidities impacted this encounter? (DM, HTN, Smoking, COPD, CAD, Cancer, CVA, ARF, Chemo, Hep., AIDS, mental health diagnosis, sleep apnea, morbid obesity)? @ -None Was patient admitted / discharged? Hospital course, mention meds given and route, prescriptions, significant lab abnormalities, going to OR and other pertinent info. @ -Patient's drainage tube was plugged we suctioned out some clots and it started draining normally. Patient will follow-up with his physician at [facility] Undiagnosed new problem with uncertain prognosis? @ -No Drug Therapy requiring intensive monitoring for toxicity (Heparin, Nitro, Insulin, Cardizem)? @ -No Were any procedures done? @ -No Diagnosis/symptom? @ -Clogged drainage tube Acute, or Chronic, or Acute on Chronic? @ -Acute Uncomplicated (without systemic symptoms) or Complicated (systemic symptoms)? @ -Uncomplicated Side effects of treatment? @ -No Exacerbation, Progression, or Severe Exacerbation? @ -No Poses a threat to life or bodily function? How? (Chest pain, USA, AR, pneumonia, PE, COPD, DKA, ARF, appy, cholecystitis, CVA, Diverticulitis, Homicidal, Suicidal, threat to staff... and all critical care pts) @ -No Disposition Clinical Impression: Postoperative complication Disposition: HOME SELF-CARE Condition: Good Is patient prescribed a controlled substance at d/c from ED?: No Referrals: Isaiah Huggins DO [Primary Care Provider] - 1-2 days Time of Disposition: 11:14
[2024-01-17 11:26] VITALS: BP 136/76; PULSE 86; RESP 18; TEMP 98.1
== END 2024-01-17 11:26 | disposition home or self-care (01) ==
LOC: EC 09:17
DX: Z48.03 Encounter for change or removal of drains (principal); T88.9XXA Complication of surgical and medical care, unspecified, initial encounter; Z88.2 Allergy status to sulfonamides; Z88.8 Allergy status to other drugs, medicaments and biological substances
CPT/HCPCS: 99283

== ENCOUNTER → 2024-01-22 | Day surgery (SDC) | payer MEDICARE | LOC: RADPROMAIN 09:12 | PROVIDERS: ATTEND Radiology Diagnostic Radiology | DX: L76.34 Postprocedural seroma of skin and subcutaneous tissue following other procedure (principal) ==

== ENCOUNTER → 2024-02-06 | Day surgery (SDC) | payer MEDICARE | LOC: RADPROMAIN 12:30 | PROVIDERS: ATTEND Radiology Diagnostic Radiology | DX: M47.816 Spondylosis without myelopathy or radiculopathy, lumbar region (principal) ==

== ENCOUNTER 2024-02-13 09:33 | Day surgery (SDC) | payer MEDICARE ==
[2024-02-13 10:59] VITALS: BP 133/71; PULSE 71; RESP 16; TEMP 98
--- NOTE | 2024-02-13 12:06 | US ---
EXAMINATION TYPE: US extremity nonvasc mass RT DATE OF EXAM: 02/13/2024 COMPARISON: 01/07/2024 CLINICAL INDICATION: Male, 83 years old with history of Please assess right groin for fluid collectio n; TECHNIQUE: Right groin scanned in area of drain FINDINGS: No discrete fluid collection seen. IMPRESSION: No fluid collection seen. Drainage catheter will be removed.
== END 2024-02-13 11:10 | disposition home or self-care (01) ==
LOC: RADPROMAIN 09:33
PROVIDERS: ATTEND Radiology Diagnostic Radiology
DX: L76.34 Postprocedural seroma of skin and subcutaneous tissue following other procedure (principal)
CPT/HCPCS: 99213

== ENCOUNTER → 2024-06-11 | Outpatient (CLI) | payer MEDICARE ==
--- NOTE | 2024-06-12 10:26 | PE ---
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 Images are reviewed on the computer in the coronal, axia l, and sagittal planes. Reconstructed rotating images are created on independent workstation and rev iewed on the computer. A non-contrast CT is performed in conjunction with the PET scan. Glucose lev el 153 mg/dL CT DLP: 1085 mGycm, Automated exposure control for dose reduction was used. r COMPARISON: CT None, PET/CT 12/29/2023, MRI: None FINDINGS: Mediastinal SUV mean is 2.1. Hepatic parenchyma SUV mean is 2.8. SKULL BASE AND NECK: No suspicious radiotracer activity. CHEST, MEDIASTINUM, AND HILAR REGION: * Right breast soft tissue mass measuring 15 x 18 mm Max SUV 1.1. * No suspicious uptake. ABDOMEN AND PELVIS: No suspicious radiotracer activity. MUSCULOSKELETAL STRUCTURES: * No suspicious radiotracer activity. * Right thigh cystic structure seen on prior is no longer visualized. * Right inguinal lymph node max SUV 2.0 previously 5.4 * Left shoulder arthroplasty appears intact. OTHER CT: * Bilateral palatine tonsillitis. * Atherosclerosis of the carotid bifurcations. * Trace pericardial effusion * Coronary atherosclerosis. * Mild cardiomegaly. * Bilateral nonobstructing renal calculi measuring up to 18 mm in the right renal pelvis and 14 mm i n the left renal calyx. * Colonic diverticulosis. * Prostatomegaly. * Fatty changes to the inguinal canals. Abundance of fat within the scrotal sac. IMPRESSION: 1. Right anterior medial thigh cystic structure is no longer visualized, 2. Right inguinal region FDG avid focus has decreased in metabolic activity suggesting positive resp onse to treatment. No other suspicious FDG uptake visualized. 3. Right breast non-FDG avid lesion correlate with ultrasound imaging. [facility], , 06/12/2024 10:24 AM
== END | disposition home or self-care (01) ==
LOC: RADPETMAIN 13:37
PROVIDERS: ATTEND Internal Medicine
DX: C4A Merkel cell carcinoma (principal); K57.30 Diverticulosis of large intestine without perforation or abscess without bleeding; N20.0 Calculus of kidney; I51.7 Cardiomegaly
CPT/HCPCS: 78816; A9552

== ENCOUNTER → 2024-10-28 | Outpatient (CLI) | payer MEDICARE ==
--- NOTE | 2024-10-28 15:42 | PE ---
EXAMINATION TYPE: PET CT fusion whole body DATE OF EXAM: 10/28/2024 COMPARISON: Prior PET/CT June 11, 2024 and older studies HISTORY: [place] cell cancer TECHNIQUE: Following the intravenous administration of 8.54 mCi of F-18 FDG, whole body images are p erformed from the top of skull to the bottom of the. Images are reviewed on the computer in the harley nal, axial, and sagittal planes. Reconstructed rotating images are created on independent workstatio n and reviewed on the computer. A localization and attenuation correction CT is performed in conjun ction with the PET scan. Blood glucose level was 109 SCAN: Subsequent Scan FINDINGS: HEAD AND NECK: No new areas of abnormal hypermetabolic uptake. CHEST, MEDIASTINUM, AND HILAR REGION: No new areas of abnormal hypermetabolic uptake. Stable asymmetr ic prominent right breast mass without abnormal hypermetabolic uptake. ABDOMEN AND PELVIS: No new areas of abnormal hypermetabolic uptake LOWER EXTREMITIES: Stable scar tissue right groin region. No new abnormal hypermetabolic uptake OSSEOUS STRUCTURES: No new areas of abnormal hypermetabolic uptake. OTHER CT: Metallic hardware from Left shoulder arthroplasty is redemonstrated. Moderate calcified suleman que bilateral carotid bulb level again seen. Persistent severe coronary artery calcifications and/or stents. Persisting cardiomegaly. Persistent bilateral renal calculi including a large 15 mm calculus at right UVJ. Enlarged prostate c onsistent with BPH is redemonstrated. Persistent posterior abnormal soft tissue central lower gluteal region infection. Lower extremity subcutaneous edema greatest distally and more prominent in the right lower extremity is redemonstrated. IMPRESSION: No new abnormal hypermetabolic uptake to suggest active neoplastic recurrence. [facility], , 10/28/2024 3:40 PM
== END | disposition home or self-care (01) ==
LOC: RADPETMAIN 09:24
PROVIDERS: ATTEND Internal Medicine
DX: C4A Merkel cell carcinoma (principal)
CPT/HCPCS: 78816; A9552

== ENCOUNTER → 2025-01-05 | Outpatient (CLI) | payer MEDICARE ==
--- NOTE | 2025-01-05 17:00 | US ---
EXAMINATION TYPE: US extremity nonvasc mass RT DATE OF EXAM: 01/05/2025 COMPARISON: NONE CLINICAL INDICATION: Male, 84 years old with history of D48.5 NEOPLASM OF UNCERTAIN BEHAVIOR OF SKIN; Pt states skin biopsy approx 2 weeks ago, states right forearm swelled up, swelling has since improv ed, small palpable lump right posterior forearm TECHNIQUE: Soft tissue right posterior forearm FINDINGS: No fluid collections visualized in area of palpable right posterior forearm IMPRESSION: 1. No suspicious collections at the area of interest at the palpable region. Clinical management kayla mmended. [facility], Workstation: [facility], 01/05/2025 4:58 PM
== END | disposition home or self-care (01) ==
LOC: RADUSWWP 14:46
DX: D48.5 Neoplasm of uncertain behavior of skin (principal)